=== PATIENT | female | born 2000 ===

== ENCOUNTER 2022-05-24 16:44 | Emergency (ER) | payer SELFPAY ==
[2022-05-24] MEDS ORDERED: Dexamethasone 10 MG/ML VIAL ONE (17:24)
[2022-05-24] MEDS ORDERED: Famotidine/PF 20 mg/2ml Vial ONE (17:24)
[2022-05-24] MEDS ORDERED: diphenhydrAMINE 50 MG/ML VIAL ONE (17:24)
== END 2022-05-24 18:45 | disposition home or self-care (01) ==
LOC: CSHERS 16:44
DX: T78.40XA Allergy, unspecified, initial encounter (principal)
CPT/HCPCS: 96374; 96375; J1100; J1200; S0028